=== PATIENT | male | born 1965 | race Caucasian/White ===

== ENCOUNTER → 2017-01-21 | Outpatient (CLI) | payer OTHER | LOC: EMI 17:52 | DX: M25.542 Pain in joints of left hand (principal); M20.092 Other deformity of left finger(s) ==

== ENCOUNTER → 2017-02-23 | Outpatient (CLI) | payer OTHER | LOC: US 13:00 | DX: M79.642 Pain in left hand (principal); M21.942 Unspecified acquired deformity of hand, left hand; N18.3 Chronic kidney disease, stage 3 (moderate); M77.9 Enthesopathy, unspecified; K76.0 Fatty (change of) liver, not elsewhere classified; N28.1 Cyst of kidney, acquired | CPT/HCPCS: 73218; 76775 ==

== ENCOUNTER 2021-06-07 03:37 | Inpatient (IN) | payer OTHER ==
[~2021-06-07] VITALS: Ht 165.1 cm; Wt 102.1 kg
[~2021-06-07 03:37] MED LIST: OMNICEF 300 MG300 MG PO
[2021-06-07 04:29] LABS: HEMOGLOBIN 18.5 gm/dl (14.0-17.5); RED BLOOD COUNT 5.19 M/UL (4.20-5.50); WHITE BLOOD COUNT 17.6 K/UL (4.5-11.0)
[2021-06-07 04:55] LABS: BUN/CREATININE RATIO 26 (0-10)
[2021-06-07] MEDS ORDERED: PROTONIX 40 MG40 M1 PO (07:59)
[2021-06-07] MEDS ORDERED: LASIX20 MG PO (08:00)
[2021-06-07] MEDS ORDERED: CELEXA10 MG PO (08:01)
[2021-06-07] MEDS ORDERED: NORVASC10 MG PO (08:01)
[2021-06-07] MEDS ORDERED: TOPROL XL100 MG PO (08:01)
[2021-06-07] MEDS ORDERED: GLUCOTROL 10 MG10 MG PO (08:02)
[2021-06-07] MEDS ORDERED: IRON325 M1 PO (08:02)
[2021-06-07] MEDS ORDERED: IPRATROPIUM BRO15 ML (08:04)
[2021-06-07] MEDS ORDERED: JANUVIA50 MG PO (08:05)
[2021-06-07] MEDS ORDERED: ZETIA10 MG PO (08:05)
[2021-06-07] MEDS ORDERED: ALDACTONE 25MG25 MG PO (08:05)
[2021-06-07] MEDS ORDERED: FLONASE 0.05% N16 GM (08:06)
[2021-06-07] MEDS ORDERED: ANTIVERT 12.512.5 MG PO (08:06)
[2021-06-07] MEDS ORDERED: PLETAL 100 MG100 MG PO (08:06)
[2021-06-07] MEDS ORDERED: CLARITIN10 MG PO (08:07)
[2021-06-07] MEDS ORDERED: HYDROXYZINE HCL25 MG PO (08:07)
[2021-06-07] MEDS ORDERED: HYDROCODON-ACE1 EAC2 PO (14:11)
[2021-06-07] MEDS ORDERED: ASPIRIN325 MG PO (14:12)
[2021-06-07] MEDS ORDERED: FISH OIL 1,0001 EAC1 PO (14:12)
[2021-06-07] MEDS ORDERED: LISINOPRIL40 MG PO (14:15)
[2021-06-07] MEDS ORDERED: SERTRALINE HCL100 MG PO (14:15)
[2021-06-07] MEDS ORDERED: CELEBREX200 MG PO (14:16)
[2021-06-07] MEDS ORDERED: GABAPENTIN800 MG PO (14:17)
[2021-06-07] MEDS ORDERED: METHIMAZOLE10 MG PO (14:20)
[2021-06-07] MEDS ORDERED: OMEPRAZOLE40 MG PO (14:21)
[2021-06-07] MEDS ORDERED: DULOXETINE HCL60 MG PO (14:22)
[2021-06-07] MEDS ORDERED: ADMELOG SO100 UNIT/1 SC (14:26)
[2021-06-07] MEDS ORDERED: PRAVASTATIN SOD40 MG PO (14:27)
[2021-06-07] MEDS ORDERED: DILTIAZEM 24HR180 M1 PO (14:27)
[2021-06-07] MEDS ORDERED: METOPROLOL SUC100 MG PO (14:28)
[2021-06-07] MEDS ORDERED: MONTELUKAST SOD10 MG PO (14:28)
[2021-06-07] MEDS ORDERED: ZANAFLEX 4 MG TA4 MG PO (14:39)
[2021-06-07] MEDS ORDERED: TRULICITY1.5 MG/0.5 SQ (14:40)
[2021-06-07] MEDS ORDERED: LANTUS SOL100 UNIT/1 SQ (14:40)
[2021-06-07] MEDS ORDERED: NIACIN FLUSH F400 MG PO (14:45)
[2021-06-07] MEDS ORDERED: LEVOCETIRIZINE D5 MG PO (14:46)
[2021-06-08 06:25] LABS: WHITE BLOOD COUNT 14.6 K/UL (4.5-11.0)
[2021-06-08 06:29] LABS: HEMOGLOBIN 15.4 gm/dl (14.0-17.5); RED BLOOD COUNT 4.3 M/UL (4.20-5.50)
[2021-06-09 06:21] LABS: HEMOGLOBIN 14.3 gm/dl (14.0-17.5); RED BLOOD COUNT 4.02 M/UL (4.20-5.50)
--- NOTE | 2021-06-09 10:25 | NUR ---
0945 - SEDATION DECREASED BY HALF. PT ATTEMPTING TO GET OOB AND ATTEMPTING TO PULL AT TUBE. MD NOTIFIED AND CAME TO BEDSIDE. PT UNABLE TO FOLLOW ANY COMMANDS WHILE AWAKE. ORDERS TO RESEDATE GIVEN. DISCUSSED PT WITH SPOUSE. SHE STATES PT DRINKS BUT IS UNSURE OF HOW MUCH. SHE FEELS THAT HE HASN'T HAD ANYTHING IN OVER A WEEK, BUT IS UNSURE. MD AWARE. ORDERS NOTED.
[2021-06-10 05:23] LABS: HEMOGLOBIN 13.8 gm/dl (14.0-17.5); RED BLOOD COUNT 3.88 M/UL (4.20-5.50)
[2021-06-10 05:58] LABS: BUN/CREATININE RATIO 38 (0-10)
[2021-06-10 06:09] LABS: WHITE BLOOD COUNT 10.7 K/UL (4.5-11.0)
[2021-06-11 05:46] LABS: HEMOGLOBIN 14.7 gm/dl (14.0-17.5); RED BLOOD COUNT 4.08 M/UL (4.20-5.50); WHITE BLOOD COUNT 9.9 K/UL (4.5-11.0)
[2021-06-11 06:16] LABS: BUN/CREATININE RATIO 37 (0-10)
[2021-06-11 12:14] LABS: HEPATITIS C QUANTITATION HCV Not Detected IU/mL (.)
--- NOTE | 2021-06-12 00:42 | NUR ---
Patient resting quietly . no complaints. update given . care resumed.
[2021-06-12 06:46] LABS: HEMOGLOBIN 13.9 gm/dl (14.0-17.5); RED BLOOD COUNT 3.98 M/UL (4.20-5.50); WHITE BLOOD COUNT 9.2 K/UL (4.5-11.0)
[2021-06-12 07:40] LABS: BUN/CREATININE RATIO 32 (0-10)
--- NOTE | 2021-06-12 23:00 | NUR ---
INCONTINENT OF STOOL , COMPLETE BED BATH GIVEN. PT ANXIOUS AND FREQUENTLY PULLING AT BED LINENS , ECG LEADS ,ECT. APPEARS TO HAVE TROUBLE EXPRESSING HIS NEEDS AT TIMES . HOWEVER. DURING BED BATH HE COMMUNICATED WITH LITTLE DIFFICULTY. ALSO, REMEMBERING MY NAME FROM INTRODUCTION ON THE PREVIOUS DATE.
--- NOTE | 2021-06-13 00:25 | NUR ---
PULLING ECG LEADS OFF , ANXIOUS . DR BENITEZ NOTIFIED . ORDER RECEIVED .
--- NOTE | 2021-06-13 03:00 | NUR ---
PT CLIMBING OUT OF BED. PULLING ECG LEADS OFF. DR BENITEZ NOTIFIED. PLACED ON [facility] PROTOCOL.
--- NOTE | 2021-06-13 03:48 | NUR ---
PATIENT POINTING TO FLOOR ASKING ABOUT THE TELEPHONE . REASSURED THERE WASNT A PHONE WHERE HE WAS POINTING. WILL CONTINUE TO CLOSELY MONITOR.
[2021-06-13 06:38] LABS: HEMOGLOBIN 16.3 gm/dl (14.0-17.5); RED BLOOD COUNT 4.58 M/UL (4.20-5.50); WHITE BLOOD COUNT 13.3 K/UL (4.5-11.0)
[2021-06-13 07:25] LABS: BUN/CREATININE RATIO 31 (0-10)
--- NOTE | 2021-06-13 11:39 | NUR ---
06/13/21 1135 report called to Rossi Camejo transferred to room 5106
[2021-06-14 06:08] LABS: HEMOGLOBIN 15.6 gm/dl (14.0-17.5); RED BLOOD COUNT 4.4 M/UL (4.20-5.50); WHITE BLOOD COUNT 15.4 K/UL (4.5-11.0)
[2021-06-14 06:26] LABS: BUN/CREATININE RATIO 25 (0-10)
[2021-06-15 06:13] LABS: HEMOGLOBIN 15.9 gm/dl (14.0-17.5); RED BLOOD COUNT 4.51 M/UL (4.20-5.50); WHITE BLOOD COUNT 14.2 K/UL (4.5-11.0)
[2021-06-15 06:26] LABS: BUN/CREATININE RATIO 21 (0-10)
[2021-06-15] MEDS ORDERED: MEDROL DOSEPAK 24 MG PO (14:37)
[2021-06-16 20:10] LABS: AMPHETAMINES, URINE Negative ng/mL (Cutoff=1000); BARBITURATE Negative ng/mL (Cutoff=200); BENZODIAZEPINES Negative ng/mL (Cutoff=200); CANNABINOID Positive (Cutoff=20); CANNABINOIDS See Final Results ng/mL (Cutoff=20); CARBOXY THC GC/MS CONF 16 ng/mL (Cutoff=10); COCAINE (METABOLITE) Negative ng/mL (Cutoff=300); CREATININE 65.6 mg/dL (20.0-300.0); MEPERIDINE Negative ng/mL (Cutoff=200); METHADONE Negative ng/mL (Cutoff=300); OPIATES Negative ng/mL (Cutoff=300); OXYCODONE Positive (.); OXYCODONE (GC/MS) 491 ng/mL (Cutoff=300); OXYCODONE/OXYMORPH Positive (Cutoff=300); OXYMORPHONE Negative (Cutoff=300); PHENCYCLIDINE Negative ng/mL (Cutoff=25); PROPOXYPHENE Negative ng/mL (Cutoff=300)
== END 2021-06-15 15:42 | disposition home health service (06) | DRG 915 ==
LOC: ER1 03:37 → CDU 05:39 → CCU 05:39 → M/S 06-13 11:45
PROVIDERS: Internal Medicine; Internal Medicine Pulmonary Disease; Student in an Organized Health Care Education/Training Program; ADMIT Internal Medicine
PROC: 0BH17EZ Insertion of Endotracheal Airway into Trachea, Via Natural or Artificial Opening (ICD-10-PCS; principal; 2021-06-07)
PROC: 5A1955Z Respiratory Ventilation, Greater than 96 Consecutive Hours (ICD-10-PCS; principal; 2021-06-07)
PROC: 3E033XZ Introduction of Vasopressor into Peripheral Vein, Percutaneous Approach (ICD-10-PCS; 2021-06-07)
PROC: 0DH67UZ Insertion of Feeding Device into Stomach, Via Natural or Artificial Opening (ICD-10-PCS; 2021-06-07)
PROC: B24BZZZ Ultrasonography of Heart with Aorta (ICD-10-PCS; 2021-06-07)
PROC: 05HM33Z Insertion of Infusion Device into Right Internal Jugular Vein, Percutaneous Approach (ICD-10-PCS; 2021-06-10)
PROC: B543ZZA Ultrasonography of Right Jugular Veins, Guidance (ICD-10-PCS; 2021-06-10)
DX: T78.3XXA Angioneurotic edema, initial encounter (principal); J96.01 Acute respiratory failure with hypoxia; J69.0 Pneumonitis due to inhalation of food and vomit; G93.40 Encephalopathy, unspecified; N17.9 Acute kidney failure, unspecified; F10.131 Alcohol abuse with withdrawal delirium; F19.10 Other psychoactive substance abuse, uncomplicated; F10.10 Alcohol abuse, uncomplicated; Z20.822 Contact with and (suspected) exposure to COVID-19; I25.10 Atherosclerotic heart disease of native coronary artery without angina pectoris; T44.5X5A Adverse effect of predominantly beta-adrenoreceptor agonists, initial encounter; F17.210 Nicotine dependence, cigarettes, uncomplicated; E66.9 Obesity, unspecified; E11.22 Type 2 diabetes mellitus with diabetic chronic kidney disease; I08.1 Rheumatic disorders of both mitral and tricuspid valves; I12.9 Hypertensive chronic kidney disease with stage 1 through stage 4 chronic kidney disease, or unspecified chronic kidney disease; N18.2 Chronic kidney disease, stage 2 (mild); T46.4X5A Adverse effect of angiotensin-converting-enzyme inhibitors, initial encounter; Z79.4 Long term (current) use of insulin; Z79.82 Long term (current) use of aspirin; Z68.30 Body mass index [BMI] 30.0-30.9, adult; Z95.1 Presence of aortocoronary bypass graft; Z98.890 Other specified postprocedural states; Z83.3 Family history of diabetes mellitus; Z88.8 Allergy status to other drugs, medicaments and biological substances
CPT/HCPCS: ECHO; 31500; 36415; 36600; 43752; 51702; 70450; 71045; 80048; 80053; 80307; 81001; 82140; 82550; 82553; 82803; 82962; 83036; 83540; 83550; 83605; 83615; 83735; 83874; 83880; 84100; 84132; 84484; 85025; 85027; 85384; 85610; 85652; 85730; 86140; 87040; 87070; 87077; 87081; 87186; 87205; 87522; 92526; 92610; 93005; 93306; 94002; 94003; 94640; 94664; 94760; 97110-GP-CQ; 97116-GP-CQ; 97162; 97530; 97530-GP-CQ; 99285; C1751; C9113; J0171; J0330; J0360; J1200; J1335; J1630; J1650; J2060; J2250; J2270; J2543; J2704; J2920; J2930; J3010; J3411; J3475; J3486; J7030; J7070; U0002

== ENCOUNTER 2021-12-17 18:11 | Emergency (ER) | payer OTHER ==
[~2021-12-17 18:11] MED LIST changes: +ADMELOG SO100 UNIT/1 SC; +ALDACTONE 25MG25 MG PO; +ANTIVERT 12.512.5 MG PO; +ASPIRIN325 MG PO; +CELEBREX200 MG PO; +CELEXA10 MG PO; +CLARITIN10 MG PO; +DILTIAZEM 24HR180 M1 PO; +DULOXETINE HCL60 MG PO; +FISH OIL 1,0001 EAC1 PO; +FLONASE 0.05% N16 GM; +GABAPENTIN800 MG PO; +GLUCOTROL 10 MG10 MG PO; +HYDROCODON-ACE1 EAC2 PO; +HYDROXYZINE HCL25 MG PO; +IPRATROPIUM BRO15 ML; +IRON325 M1 PO; +JANUVIA50 MG PO; +LANTUS SOL100 UNIT/1 SQ; +LASIX20 MG PO; +LEVOCETIRIZINE D5 MG PO; +LISINOPRIL40 MG PO; +MEDROL DOSEPAK 24 MG PO; +METHIMAZOLE10 MG PO; +METOPROLOL SUC100 MG PO; +MONTELUKAST SOD10 MG PO; +NIACIN FLUSH F400 MG PO; +NORVASC10 MG PO; +OMEPRAZOLE40 MG PO; +PLETAL 100 MG100 MG PO; +PRAVASTATIN SOD40 MG PO; +PROTONIX 40 MG40 M1 PO; +SERTRALINE HCL100 MG PO; +TOPROL XL100 MG PO; +TRULICITY1.5 MG/0.5 SQ; +ZANAFLEX 4 MG TA4 MG PO; +ZETIA10 MG PO
[2021-12-17] MEDS ORDERED: CEPHALEXIN500 MG PO (21:13)
== END 2021-12-17 21:39 | disposition home or self-care (01) ==
LOC: ER1 18:11
DX: S61.212A Laceration without foreign body of right middle finger without damage to nail, initial encounter (principal); Z23 Encounter for immunization; E11.9 Type 2 diabetes mellitus without complications; W26.8XXA Contact with other sharp object(s), not elsewhere classified, initial encounter; Y92.009 Unspecified place in unspecified non-institutional (private) residence as the place of occurrence of the external cause
CPT/HCPCS: 12001; 73130; 90471; 90715; 99283